=== PATIENT | female | born 1995 | race Two or more races ===

== ENCOUNTER 2020-07-06 17:36 | Emergency (ER) | payer BC, SELFPAY ==
--- NOTE | ~2020-07-06 | XR_ITS ---
XR knee LT min 4V DATE: 07/06/2020 19:45 INDICATION: Fall. Anterior left knee pain. Patient felt a pop. TECHNIQUE: 4 views including crosstable lateral COMPARISON: None FINDINGS: Prominent suprapatellar knee joint effusion. Thin linear approximately 9 mm wide linear bony density overlies the central right knee, likely a cor tical avulsion fracture. MR left knee examination is recommended. No fracture is noted otherwise. No dislocation. Joint spaces are preserved. No chondrocalcinosis. IMPRESSION: Cortical avulsion fracture in central knee joint, likely a cortical avulsion fracture fro m a tibial spine associated with possible cruciate ligament injury. Large knee joint effusion MRI left knee examination is recommended Reviewed, dictated and finalized at location A. [employer]CE BUYER IMPRESSION: Cortical avulsion fracture in central knee joint, likely a cortical avulsion fracture from a tibial spine associated with possible cruciate ligame nt injury. Large knee joint effusion MRI left knee examination is recommended
[2020-07-06 18:57] VITALS: BP 149/94; PULSE 86; RESP 16; TEMP 36.8; O2SAT 99
--- NOTE | 2020-07-06 19:48 | ED.LOWEXIN ---
HPI - Extremity Injury (Lower) General Chief Complaint: Extremity Injury, Lower Stated Complaint: left knee pain Time Seen by Provider: 07/06/20 19:30 History of Present Illness HPI Narrative: Patient is a 25-year-old female who presents [facility] with chief complaint of left knee pain. Patient states that she tripped and landed on her left knee. Patient states she heard a pop and is reported whenever she ambulates in particular whenever she straightens her leg out it hurts. Patient states the pain is moderate to severe states that it is worsened with ambulation and worse with movement. Patient states the pain is mostly localized to the area around the kneecap reports that it is improved with rest. The patient denies swelling denies prior injury to the knee. Review of Systems Review of Systems: Narrative: CONSTITUTIONAL: Denies fever, chills, or sweats. EYES: Denies visual changes, redness, or discharge. ENT: Denies rhinorrhea, congestion, sore throat, or otalgia. CARDIOVASCULAR: Denies chest pain, palpitations, or edema. RESPIRATORY: Denies cough or dyspnea. GASTROINTESTINAL: Denies abdominal pain, nausea, vomiting, or diarrhea. GENITOURINARY: Denies dysuria or hematuria. SKIN: Denies rash or itching. MUSCULOSKELETAL: Denies back pain, joint pain, or myalgia. NEUROLOGIC: Denies headache, numbness, or weakness. PSYCHIATRIC: Denies anxiety or depression. 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 HEAD: Normocephalic, atraumatic. EYES: PERRLA and EOMI. ENT: Nares clear, no rhinorrhea or epistaxis. Mucous membranes moist. NECK: Supple. CHEST: Clear to auscultation. No respiratory distress. HEART: Regular rate and rhythm. No murmur heard. Normal peripheral pulses. ABDOMEN: Soft, nontender, nondistended, normal active bowel sounds. EXTREMITIES: Normal range of motion. No edema., There is tenderness to palpation of the left knee there is no ecchymosis no crepitance or laceration SKIN: Warm, dry, no rash. NEURO: No focal deficits. Alert and oriented x3. PSYCH: Normal mood and affect. Course Course Emergency Course: X-ray showed evidence of probable ligamentous injury with a avulsion fracture of the tibial spine Vital Signs Vital signs: Vital Signs Temperature 36.8 C 07/06/20 18:57 Pulse Rate 86 07/06/20 18:57 Respiratory Rate 16 07/06/20 18:57 Blood Pressure 149/94 H 07/06/20 18:57 Pulse Oximetry 99 07/06/20 18:57 Temperature 36.8 C 07/06/20 18:57 Pulse Rate 86 07/06/20 18:57 Respiratory Rate 16 07/06/20 18:57 Blood Pressure 149/94 H 07/06/20 18:57 Pulse Oximetry 99 07/06/20 18:57 Discharge Plan Discharge Clinical Impression: Internal derangement of knee Qualifiers: Laterality: left Qualified Code(s): M23.92 - Unspecified internal derangement of left knee Patient Disposition: Home, Self-Care Condition: Stable Instructions: Antibiotic Form Follow-up/Referrals: PHYSICIAN,GLASS CLEANING MACHINE TENDER [Primary Care Provider] - Jani Carlson MD [Physician] - 1 Week Stand Alone Forms: Work/School Release IP Time of Disposition: 20:10
--- NOTE | 2020-07-06 20:42 | PC.NURSE ---
knee immobilizer placed on left knee as ordered, pt asif well.
[2020-07-06 20:43] VITALS: BP 138/89; PULSE 86; RESP 18; TEMP 36.8; O2SAT 99
== END 2020-07-06 20:44 | disposition home or self-care (01) ==
PROVIDERS: Emergency Provider Emergency Medicine
DX: S82.002A Unspecified fracture of left patella, initial encounter for closed fracture (principal); W01.0XXA Fall on same level from slipping, tripping and stumbling without subsequent striking against object, initial encounter
CPT/HCPCS: 73564; 99283

== ENCOUNTER 2020-07-15 09:34 | Outpatient (CLI) | payer BC, SELFPAY ==
--- NOTE | ~2020-07-15 | MR_ITS ---
EXAMINATION: MR knee LT wo con DATE: 07/15/2020 10:22 INDICATION: Left knee pain. Unspecified internal derangement of left knee. TECHNIQUE: Magnetic resonance imaging (MRI) of the left knee was performed without intravenous contra st. Sequences included axial PD-weighted FS FSE, coronal PD-weighted FSE and PD-weighted FS FSE, sagi ttal PD-weighted FSE, and sagittal T2-weighted FS FSE. COMPARISON: Left knee radiographs 07/06/2020 FINDINGS: Medial compartment: Medial meniscus is normal. There is cartilage surface irregularity of tibial condyle and femoral cond yle. Lateral compartment: Lateral meniscus is normal. Tibial cartilage is normal. There is full-thickness cartilage loss of fem oral condyle involving the central and lateral articular surface including an area of cortex loss. Th e sliver of calcification in the intercondylar notch on the prior radiographs may have been an osteoc hondral fragment with this missing cortical bone. There is bone marrow edema involving the lateral as pect of lateral femoral condyle. Patellofemoral compartment: There is full-thickness cartilage loss and cartilage fissuring involving patellar medial facet, media n ridge, and lateral facet distally. Displaced cartilage fragments are noted. There is bone marrow ed mateo of distal medial patella. Ligaments and tendons: The anterior and posterior cruciate ligaments are normal. There is edema of vastus medialis muscle, c onsistent with mild strain. There is a partial tear of the medial retinaculum. The medial collateral ligament is normal. The lateral collateral ligament complex is normal. Fluid: There is a large knee joint effusion with heterogeneous signal intensity, consistent with hematoma. T here is mild superficial infrapatellar bursitis. IMPRESSION: 1. Patella dislocation-relocation injury with bone contusions and full-thickness cartilage loss of pa tella and lateral femoral condyle and displaced osteochondral lesion of lateral femoral condyle. 2. Large hemarthrosis with displaced cartilage fragments. 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 Patella dislocation-relocation injury with bone contusions and full-thicknes s cartilage loss of patella and lateral femoral condyle and displaced osteochon dral lesion of lateral femoral condyle. 2. Large hemarthrosis with displaced cartilage fragments.
== END 2020-07-15 09:35 ==
PROVIDERS: Visit Provider Orthopaedic Surgery
DX: S83.195A Other dislocation of left knee, initial encounter (principal)
CPT/HCPCS: 73721

== ENCOUNTER 2022-03-21 11:09 | Emergency (ER) | payer SELFPAY ==
[2022-03-21 11:26] VITALS: BP 140/88; PULSE 84; RESP 18; TEMP 36.6; O2SAT 100
--- NOTE | 2022-03-21 11:41 | ED.SKABFB ---
HPI - Skin/Abscess/Foreign Bdy General Chief complaint: Skin/Abscess/Foreign Body Stated complaint: rash Time Seen by Provider: 03/21/22 11:30 History of Present Illness HPI narrative: Anu Bowman is a 26 yo female with no PMH [facility] complaints of a generalized rash particularly under her pannus that started after she is walking in the [place] with her brother but 7 to 10 days ago. Rash has been spreading and is in many other crevices around her abdomen bra line as well as her back arms and legs she has some mild rash also on her face. It is hard to estimate to character of the rash since it is covered with calamine lotion Related Data Allergies Allergy/AdvReac Type Severity Reaction Status Date / Time shellfish derived Allergy Swelling Verified 03/21/22 11:31 of Lip/Tongue/Throat Review of Systems Review of Systems: CONSTITUTIONAL: Denies fever, chills, sweats. EYES: Denies visual changes, redness, discharge. ENT: Denies rhinorrhea, congestion, sore throat, otalgia. CARDIOVASCULAR: Denies chest pain, palpitations, edema. RESPIRATORY: Denies dyspnea, wheezing, cough GASTROINTESTINAL: Denies abdominal pain, nausea, vomiting, diarrhea. GENITOURINARY: Denies dysuria, hematuria, abnormal discharge SKIN: Generalized rash on arms legs and trunk NEUROLOGIC: Denies numbness, or focal weakness. PSYCHIATRIC: Denies anxiety or depression. [facility] Past Medical History Medical History Obesity due to excess calories Social History Social History (Updated 03/21/22 @ 11:51 by Alissa Palma CNP) Smoking status: Never smoker Alcohol intake: current Comments At time of signature, I agree with nursing past medical, surgical, social and family history. There is no relevant family history pertinent to the presenting complaint. Exam Narrative: GENERAL: This is a well-nourished, well-developed patient, in mild distress. HEAD: normocephalic, atraumatic. EYES: PERRL. Sclera clear/white. Vision is grossly intact. EARS: External ears normal, auditory canals clear and without drainage, TMs normal without perforation. Hearing grossly intact. NOSE: External nose normal without nasal discharge, nares without redness, no rhinorrhea. THROAT: Mucous membranes moist, NECK: Neck supple, non-tender CARDIOVASCULAR: Regular rate and rhythm without murmurs, gallops, or rubs. RESPIRATORY: Clear to auscultation. Breath sounds equal bilaterally. No wheezes, rales, or rhonchi. GASTROINTESTINAL: Abdomen soft, non-tender, SKIN: warm, intact with red rash to R side face, both arms, legs, abdomen underpannus that is vesicular and oozing clear fluid, and bra line on back NEURO: awake, alert, and oriented to person, place and time. There were no obvious focal neurologic abnormalities. Steady gait EXTREMITIES: Normal range of motion. BACK: Nontender without deformity Course Course Emergency Course: Patient has a rash all over body after hiking Solu-Medrol 125mg at [facility] Solu-Medrol taper pack, Benadryl and famotidine started-discussed washing all clothing and shoes with warm soapy water to get rid of oil and washing Towel and getting rid of bar soap patient states is spreading Level of Care: Express Care Visit Vital Signs Vital signs: Vital Signs Temperature 97.8 F 03/21/22 11:26 Pulse Rate 84 03/21/22 11:26 Respiratory Rate 18 03/21/22 11:26 Blood Pressure 140/88 03/21/22 11:26 Pulse Oximetry 100 03/21/22 11:26 Oxygen Delivery Room Air 03/21/22 11:26 Temperature 97.8 F 03/21/22 11:26 Pulse Rate 84 03/21/22 11:26 Respiratory Rate 18 03/21/22 11:26 Blood Pressure 140/88 03/21/22 11:26 Pulse Oximetry 100 03/21/22 11:26 Oxygen Delivery Room Air 03/21/22 11:26 MDM - Skin/Abscess/Foreign Bdy Differential Diagnosis Differential diagnosis: Likely urticaria, cellulitis, contact dermatitis and other Critical Ca
[2022-03-21] MEDS: methylPREDNISolone SOD SUCC 125 MG VIAL IM (11:48)
== END 2022-03-21 12:16 | disposition home or self-care (01) ==
PROVIDERS: Emergency Provider Nurse Practitioner
DX: L23.7 Allergic contact dermatitis due to plants, except food (principal); E66.09 Other obesity due to excess calories; Z68.43 Body mass index [BMI] 50.0-59.9, adult
CPT/HCPCS: 96372; 99213; G0463; J2930

== ENCOUNTER 2022-03-30 06:28 | Emergency (ER) | payer OTHER, SELFPAY ==
--- NOTE | ~2022-03-30 | XR_ITS ---
EXAMINATION: XR hand RT min 3V DATE: 03/30/2022 07:20 INDICATION: Right hand injury. TECHNIQUE: 3 views of right hand were obtained. COMPARISON: None. FINDINGS: Bone alignment is normal. No fracture. Joint spaces are well maintained. IMPRESSION: 1. No fracture. Reviewed, dictated and finalized at location A. IMPRESSION: 1. No fracture.
[2022-03-30 06:30] VITALS: BP 137/82; PULSE 85; RESP 20; TEMP 36.7; O2SAT 98
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
[2022-03-30] MEDS: TETANUS,DIPHTHERIA,AC PERTUSSIS ADULT 0.5 ML (ADACEL) IM (07:18)
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
[2022-03-30 07:54] VITALS: BP 169/98; PULSE 85; RESP 18; TEMP 36.6; O2SAT 97
== END 2022-03-30 07:54 | disposition home or self-care (01) ==
PROVIDERS: Emergency Provider Emergency Medicine; PCP Internal Medicine
DX: S60.221A Contusion of right hand, initial encounter (principal); V89.2XXA Person injured in unspecified motor-vehicle accident, traffic, initial encounter
CPT/HCPCS: 73130; 90471; 90715; 99283

== ENCOUNTER 2023-05-03 09:57 | Outpatient (CLI) | payer BC, SELFPAY ==
--- NOTE | ~2023-05-03 | XR_ITS ---
Clinical Indication: Hypertension PA and lateral views of the chest: Comparison: None Findings: The lungs are clear, without evidence of focal consolidation or pleural effusion. Cardiome diastinal silhouette is within normal limits. Bones and soft tissues are unremarkable. Impression: Normal chest. Reviewed, dictated and finalized at location . Impression: Normal chest.
[2023-05-03 10:19] LABS: Basophils Absolute Auto 0.02 K/mm3 (0.00-0.10); Basophils Percent Auto 0.3 % (0.0-1.0); Eosinophils Absolute Auto 0.08 K/mm3 (0.02-0.50); Eosinophils Percent Auto 1.3 % (1.0-6.0); Hematocrit 40.9 % (35.0-49.0); Hemoglobin 13.1 g/dL (12.0-15.0); Immature Granulocyte Absolute 0.02 K/mm3 (0.00-0.00); Immature Granulocyte Percent A 0.3 % (0.0-0.0); Lymphocytes Absolute Auto 1.63 K/mm3 (1.10-4.50); Lymphocytes Percent Auto 26.9 % (18.0-42.0); Mean Corpuscular Hemoglobin 26.1 pg (27.0-31.0); Mean Corpuscular Volume 81.6 fL (78.0-102.0); Mean Platelet Volume 12.1 fl (9.2-11.8); Monocytes Absolute Auto 0.42 K/mm3 (0.10-0.90); Monocytes Percent Auto 6.9 % (2.0-11.0); Neutrophils Absolute Auto 3.9 K/mm3 (1.7-7.2); Neutrophils Percent Auto 64.3 % (50.0-70.0); Platelet Count Result 344 K/mm3 (150-420); Red Blood Count 5.01 M/mm3 (4.20-5.40); Red Cell Distribution Width 12.2 % (11.6-14.4); White Blood Count 6.1 K/mm3 (4.8-10.8)
[2023-05-03 10:20] LABS: Appearance Urine Clear (Clear); Bilirubin Urine Negative (Negative); Blood Urine 3+ (Negative); Color Urine Light Yellow (Yellow); Glucose Urine UA Trace (Negative); Ketones Urine Negative (Negative); Leukocyte Esterase Ur Trace (Negative); Nitrate Urine Negative (Negative); Protein Urine Negative (Negative); Specific Grav Ur 1.025 (1.010-1.020); Urobilinogen Urine 0.2 mg/dL (0.2-1.0)
--- NOTE | 2023-05-03 10:21 | ECG_ITS ---
Measurements Intervals [place] Rate: 66 P: 3 SD: 131 QRS: 61 QRSD: 88 T: 19 QT: 407 QTc: 426 Interpretive Statements SINUS RHYTHM NORMAL ECG NO PREVIOUS ECG AVAILABLE FOR COMPARISON Electronically Signed On 05-03-2023 10:42:19 CDT by Alejandro Max D.O.
[2023-05-03 10:24] LABS: Add Urine Microscopic? YES; Bacteria Urine 1+ /hpf; Squamous Epithelial Cell Urine Moderate /hpf (Few)
[2023-05-03 10:36] LABS: Hemoglobin A1C 10.6 % (<5.7)
[2023-05-03 10:55] LABS: Alanine Aminotransferase 32 U/L (14-59); Albumin Level 3.4 g/dL (3.4-5.0); Alkaline Phosphatase 95 U/L (46-116); Anion Gap 8 mmol/L (8-16); Aspartate Amino Transferase 21 U/L (15-37); Bilirubin,Total 0.4 mg/dL (0.00-1.00); Blood Urea Nitrogen 11 mg/dL (7-18); Carbon Dioxide 26 mmol/L (21-32); Chloride 102 mmol/L (98-108); Cholesterol 215 mg/dL (0-200); Estimated Glomerular Filt Rate > 60; Glucose 252 mg/dL (70-99); HDL Direct 32 mg/dL (40-60); LDL Cholesterol Calculated 164 mg/dL (<130); Osmolality Calculated 290 mOsm/kg (285-295); Potassium 4.3 mmol/L (3.5-5.1); Sodium 136 mmol/L (136-145); Thyroid Stimulating Hormone 1.25 uIU/mL (0.36-3.74); Triglycerides 93 mg/dL (0-150)
== END 2023-05-03 09:58 | disposition home or self-care (01) ==
LOC: CHSLAB 10:04
PROVIDERS: PCP Internal Medicine; Visit Provider Internal Medicine
DX: Z00.00 Encounter for general adult medical examination without abnormal findings (principal); I10 Essential (primary) hypertension; R73.9 Hyperglycemia, unspecified
CPT/HCPCS: 36415; 71046; 80053; 80061; 81001; 83036; 84443; 85025; 93005

== ENCOUNTER 2023-05-29 10:30 | Outpatient (RCR) | payer BC, SELFPAY ==
[2023-05-22 13:30] VITALS: BMI 47.5
== END 2023-08-12 09:20 | disposition home or self-care (01) ==
LOC: ANHDMC 10:30
PROVIDERS: PCP Internal Medicine; Visit Provider Internal Medicine
DX: E11.65 Type 2 diabetes mellitus with hyperglycemia (principal); Z71.3 Dietary counseling and surveillance; Z71.89 Other specified counseling
CPT/HCPCS: 97802; G0108

== ENCOUNTER 2023-08-16 11:45 | Outpatient (CLI) | payer BC, SELFPAY ==
[2023-08-16 12:24] LABS: Alanine Aminotransferase 28 U/L (14-59); Albumin Level 3.5 g/dL (3.4-5.0); Alkaline Phosphatase 82 U/L (46-116); Anion Gap 6 mmol/L (8-16); Aspartate Amino Transferase 12 U/L (15-37); Bilirubin,Total 0.3 mg/dL (0.00-1.00); Blood Urea Nitrogen 10 mg/dL (7-18); Calcium 8.7 mg/dL (8.5-10.1); Carbon Dioxide 29 mmol/L (21-32); Chloride 102 mmol/L (98-108); Estimated Glomerular Filt Rate > 60; Glucose 231 mg/dL (70-99); Osmolality Calculated 290 mOsm/kg (285-295); Potassium 3.9 mmol/L (3.5-5.1); Sodium 137 mmol/L (136-145)
== END 2023-08-16 11:46 | disposition home or self-care (01) ==
LOC: CHSLAB 11:47
PROVIDERS: PCP Internal Medicine; Visit Provider Internal Medicine
DX: E11.9 Type 2 diabetes mellitus without complications (principal)
CPT/HCPCS: 36415; 80053; 83036